=== PATIENT | male | born 1990 | race Caucasian/White ===

== ENCOUNTER → 2017-03-19 | Outpatient (CLI) | payer OTHER ==
--- NOTE | 2017-03-19 13:47 | REP ---
MR BRAIN WITHOUT AND WITH CONTRAST: HISTORY: Visual disturbance. CONTRAST: ProHance 17 mL. There are no areas of abnormal signal intensity in the brain. There is no intraparenchymal hemorrhage, infarct, mass, or midline shift. There is no abnormal enhancement. The ventricular system is normal in appearance. There is no extracerebral collection. Mucosal thickening is present in the ethmoid and maxillary sinuses. IMPRESSION: There is no intracranial lesion. Signed by Kulwinder James MD 03/19/2017 02:05 P
--- NOTE | 2017-03-19 14:08 | REP ---
MR ORBITS WITHOUT AND WITH CONTRAST: HISTORY: Visual disturbance. CONTRAST: ProHance 17 mL. The globes, optic nerves, and rectus muscles are normal in appearance. There is no orbital lesion. There is no abnormal enhancement. The cavernous sinuses, pituitary gland, optic chiasm, and hypothalamus are normal in appearance. Mucosal thickening is present in the ethmoid and maxillary sinuses. IMPRESSION: There is no orbital lesion. Signed by Kulwinder James MD 03/19/2017 02:12 P
== END ==
LOC: M RAD 10:19
PROVIDERS: ATTEND Ophthalmology
DX: H53.8 Other visual disturbances (principal)
CPT/HCPCS: 70543; 70553; A9576